=== PATIENT | male | born 1930 | race Caucasian/White ===

== ENCOUNTER 2018-03-10 16:37 | Inpatient (IN) | payer MEDICARE, BC ==
[2018-03-11] MEDS ORDERED: ONDANSETRON 4 MG/2 ML VIAL IVP PRN (06:14)
[2018-03-11] MEDS ORDERED: ACETAMINOPHEN TAB 325 MG TAB PO PRN (06:16)
[2018-03-11] MEDS ORDERED: IPRATROPIUM-ALBUTEROL 3 ML NEB INHALATION PRN (06:17)
[2018-03-11 07:22] VITALS: BMI 16.9
[2018-03-11] MEDS: IPRATROPIUM-ALBUTEROL 3 ML NEB INHALATION SCH ×4 (07:57→19:39)
[2018-03-11 09:15] LABS: Amorphous Sediment,Urine Few /hpf; Appearance,Urine Cloudy (Clear); Bilirubin,Urine Negative (Negative); Blood,Urine Negative (Negative); Color,Urine Yellow; Glucose,Urine (UA) Negative (Negative); Hyaline Casts,Urine 1 /lpf (0-2); Ketones,Urine Negative (Negative); Leukocyte Esterase,Urine Negative (Negative); Mucus,Urine Rare /hpf; Nitrite,Urine Negative (Negative); Protein,Urine 1+ (Negative); RBC,Urine <1 /hpf (0-5); Specific Gravity,Urine 1.023 (1.001-1.035); Squamous Epithelial Cell,Urine <1 /hpf (0-4); Urobilinogen,Urine <2.0 mg/dL (<2.0); WBC,Urine <1 /hpf (0-5)
[2018-03-11 09:48] LABS: Basophils % (A) 0 %; Eosinophils # (A) 0.1 k/uL (0-0.7); Eosinophils % (A) 1 %; HCT 26.6 % (39.0-53.0); HGB 8.7 gm/dL (13.0-17.5); Lymphocytes # (A) 0.7 k/uL (1.0-4.8); Lymphocytes % (A) 8 %; MCH 31.5 pg (25.0-35.0); MCHC 32.8 g/dL (31.0-37.0); MCV 96.2 fL (80.0-100.0); Mean Platelet Volume 8.1; Monocytes # (A) 0.6 k/uL (0-1.0); Monocytes % (A) 6 %; Neutrophils # (A) 7.3 k/uL (1.3-7.7); Neutrophils % (A) 83 %; Platelet Count 253 k/uL (150-450); RBC 2.77 m/uL (4.30-5.90); RDW 13.2 % (11.5-15.5); WBC 8.8 k/uL (3.8-10.6)
[2018-03-11 09:55] LABS: INR 4.3 (<1.2); Prothrombin Time 38.9 sec (9.0-12.0)
[2018-03-11 10:11] LABS: Albumin 2.6 g/dL (3.5-5.0); Calcium 9.5 mg/dL (8.4-10.2); Potassium 3.6 mmol/L (3.5-5.1); Total Bilirubin 0.4 mg/dL (0.2-1.3); Total Protein 5.6 g/dL (6.3-8.2)
[2018-03-11] MEDS: PIPERACILLIN-TAZOBACTAM 3.375 GM in DEXTROSE/WATER 1 50ML.BAG IVPB SCH ×3 (11:00→23:29)
[2018-03-11] MEDS: PANTOPRAZOLE 40 MG TABLET PO SCH (11:01)
[2018-03-11] MEDS: SYMBICORT 80-4.5 MCG INHALER INHALATION SCH ×2 (12:54→19:39)
--- NOTE | 2018-03-11 13:25 | XR ---
EXAMINATION TYPE: XR chest 2V DATE OF EXAM: 03/11/2018 COMPARISON: 07/31/2015 INDICATION: Pneumonia TECHNIQUE: Frontal and lateral views of the chest are obtained. FINDINGS: The heart size is normal. Postsurgical changes are present. The pulmonary vasculature is normal. There is a consolidation at the right lower lobe silhouetting the right diaphragm. Mild additional in creased lung markings are present. Some changes suggestive for COPD are present. There is an increase d AP diameter and lateral view. IMPRESSION: 1. Right lower lobe consolidation. Correlate for pneumonia. 2. Mild diffuse increased lung markings. Consider congestive heart failure superimposed on COPD. 3. COPD
[2018-03-11] MEDS: CYANOCOBALAMIN 500 MCG TAB PO SCH (16:12)
[2018-03-11] MEDS: guaiFENesin 600 MG TABLET.ER PO SCH ×2 (16:12→21:04)
[2018-03-11] MEDS: SODIUM CHLORIDE 0.9% 1,000 ML IV SCH (16:14)
[2018-03-11] MEDS ORDERED: WARFARIN 7.5 MG TAB PO SCH (18:00)
--- NOTE | 2018-03-11 19:09 | HP ---
HISTORY AND PHYSICAL DATE OF ADMISSION: 03/11/18. PRESENTING COMPLAINT: Weak tired, short of breath. HISTORY OF PRESENTING COMPLAINT: This is a pleasant 87-year-old patient whose family doctor is Dr. Recinos out of [place]. 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 The patient was there at [facility] from where he was transferred down here as he wanted to be close to his children in [place], [place]. The patient up to about week ago had been using a walker, was able to slowly get to his bathroom. Over the course of a few weeks the patient has been losing appetite, losing weight, lost about 30 pounds, becoming more and more fragile. The patient is known to have dysphagia and has had recurrent aspiration pneumonia. The patient does not want a feeding tube. The patient has been normally at home oxygen on 2 L. On this admission he again had aspiration pneumonia. The patient's is at the bedside and patient's other family members including son and [id number] are present. The patient has got a cough, not eating much, having bowel movements, became more and more weak and tired. The patient is on Coumadin for a mechanical aortic valve. Also got prostate cancer which is getting hormone injections every 6 months that had been discontinued. The patient is known to have interstitial lung disease. REVIEW OF SYSTEMS: CONSTITUTIONAL: Weak, tired, loss of appetite, has lost about 30 pounds. HEENT: Decreased hearing, poor vision in the eyes. RESPIRATORY: As above. CARDIOVASCULAR: None. GASTROINTESTINAL: None. GENITOURINARY: None. MUSCULOSKELETAL: Some pain in different joints. DERMATOLOGICAL: None. HEMATOLOGICAL: None. LYMPHATICS: None. PSYCHIATRY: None. NEUROLOGICAL: Generalized weakness. PAST MEDICAL HISTORY: COPD, aspiration pneumonia, chronic hypoxic respiratory failure on 2 L oxygen at home. Mechanical aortic valve, hypertension, diverticulosis, prostate cancer, not on any further treatment, GERD, diverticulosis, abdominal aortic aneurysm 5.2 cm, chronic dysphagia with aspiration, interstitial, pulmonary fibrosis, blind in the left eye, diminished hearing with hearing aids. PAST SURGICAL HISTORY: Coronary artery bypass, aortic valve replacement. SOCIAL HISTORY: . The patient smoked for about 40 years, stopped in 1980. 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 FAMILY HISTORY: Reviewed, noncontributory to presentation. HOME MEDICATIONS: Mucinex 600 mg b.i.d., Coumadin 7.5 p.o. daily, Spiriva 1 capsule inhalation daily, Restoril 50 mg q.h.s., Senokot S 1 tablet p.o. b.i.d. p.r.n., Atrovent nebulizer q.4 p.r.n., Flexeril 10 mg q.h.s. vitamin B12 1000 mcg p.o. daily, vitamin D3 400 units p.o. daily, calcium 600 mg p.o. daily, Symbicort 80/4.5, 2 puffs b.i.d., Ventolin 2.5 q.4h p.r.n. ALLERGIES: SOLU-MEDROL, OXYCODONE. PHYSICAL EXAMINATION: VITAL SIGNS ON PRESENTATION: Temperature 98.1, pulse 97, respiratory 18, blood pressure 108/60, pulse ox 91% on 4 L. GENERAL APPEARANCE: Very thin built, BMI 16.9, lying in bed. EYES: Pupils equal, conjunctivae dirty. HEENT: External appearance of nose and ears normal. Decreased hearing. Oral cavity, tongue is dry, parched, dried deposits at the back of the throat, not necessarily white. NECK: JVD not raised. Mass not palpable. RESPIRATORY: Effort increased. Lungs, diminished breath sounds. CARDIOVASCULAR: First and second sounds normal. No edema. ABDOMEN: Scaphoid, soft. Liver and spleen not palpable. No tenderness. LYMPHATIC: No lymph node palpable in neck or axillae. PSYCHIATRY: Alert and orient x3. Mood and affect normal. NEUROLOGICAL: Decreased eyesight, decreased vision. No facial asymmetry. Generalized weakness in the muscles. 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 General diffuse wasting of the muscles. INVESTIGATIONS: White count 8.8, hemoglobin 8.7, INR 4.3, potassium 3.6, BUN 22, creatinine 0.96, albumin 2.6. Chest x-ray shows right basilar infiltrate. The patient's CT scan from outside hospital shows evidence of pulmonary fibrosis. ASSESSMENT: 1. Right lower lobe pneumonia, aspiration which patient had been on Zosyn but now patient is afebrile with normal white count and some of the changes in that may be chronic. 2. Chronic hypoxic respiratory failure in an ex-smoker. 3. Chronic dysphagia with recurrent aspiration. This has already been worked up in the past. 4. Mechanical aortic valve chronically on Coumadin. 5. Coumadin monitoring. 6. Colonic diverticulosis. 7. Prostate cancer, not for any further treatment per patient. 8. Gastroesophageal reflux disease. 9. Abdominal aortic aneurysm 5.2 cm. 10.Interstitial lung disease/pulmonary fibrosis. 11.Anemia of chronic disease, probably element of nutritional. 12.Medical debility multifactorial. 13.Severe protein-calorie malnutrition with poor oral intake, bony prominences, muscle wasting. BMI 16.9. 14.CODE STATUS: DNR. PLAN: Patient will be continued for another 24 hours of IV Zosyn and then switch to Augmentin. Home medications are resumed. Coumadin dose will be cut back. We will start the patient on Ensure. Speech therapy was consulted to educate the patient on his feeding and the . PT, OT will be consulted. The patient's personal wishes to go home, which will be respected. There is some family disagreement what they want but I did discuss with the family at length that we will respect the patient's wishes and they can decide with him what the best is for him keeping his views in mind. Also discussed with the perinatal social worker. MMODL / IJN: [id number] /
[2018-03-11] MEDS: traMADol 50 MG TAB PO PRN (20:11)
[2018-03-11] MEDS: TEMAZEPAM 15 MG CAP PO PRN (20:12)
[2018-03-11] MEDS: CYCLOBENZAPRINE 10 MG TAB PO SCH (21:04)
[2018-03-12 07:30] LABS: Basophils % (A) 0 %; Eosinophils # (A) 0.2 k/uL (0-0.7); Eosinophils % (A) 3 %; HCT 27.7 % (39.0-53.0); Lymphocytes # (A) 1.1 k/uL (1.0-4.8); Lymphocytes % (A) 14 %; MCHC 32.5 g/dL (31.0-37.0); MCV 95.3 fL (80.0-100.0); Mean Platelet Volume 7.2; Monocytes # (A) 0.6 k/uL (0-1.0); Monocytes % (A) 8 %; Neutrophils # (A) 5.5 k/uL (1.3-7.7); Neutrophils % (A) 73 %; Platelet Count 343 k/uL (150-450); RBC 2.91 m/uL (4.30-5.90); RDW 12.9 % (11.5-15.5); WBC 7.5 k/uL (3.8-10.6)
[2018-03-12 07:36] LABS: INR 4.9 (<1.2); Prothrombin Time 44.7 sec (9.0-12.0)
[2018-03-12] MEDS: IPRATROPIUM-ALBUTEROL 3 ML NEB INHALATION SCH ×4 (07:46→20:08)
[2018-03-12] MEDS: PIPERACILLIN-TAZOBACTAM 3.375 GM in DEXTROSE/WATER 1 50ML.BAG IVPB SCH ×2 (07:46→16:00)
[2018-03-12] MEDS: SYMBICORT 80-4.5 MCG INHALER INHALATION SCH ×2 (07:46→20:07)
[2018-03-12 07:54] LABS: ALT 31 U/L (21-72); AST 40 U/L (17-59); Albumin 2.4 g/dL (3.5-5.0); Alkaline Phosphatase 81 U/L (38-126); Anion Gap 8 mmol/L; Blood Urea Nitrogen 16 mg/dL (9-20); Carbon Dioxide 28 mmol/L (22-30); Chloride 101 mmol/L (98-107); Glucose 95 mg/dL (74-99); Potassium 3.7 mmol/L (3.5-5.1); Sodium 137 mmol/L (137-145); Total Bilirubin 0.3 mg/dL (0.2-1.3); Total Protein 5.5 g/dL (6.3-8.2)
[2018-03-12] MEDS: guaiFENesin 600 MG TABLET.ER PO SCH ×2 (08:54→21:24)
[2018-03-12] MEDS: PANTOPRAZOLE 40 MG TABLET PO SCH (08:54)
[2018-03-12] MEDS: traMADol 50 MG TAB PO PRN (12:18)
[2018-03-12] MEDS: CYANOCOBALAMIN 500 MCG TAB PO SCH (12:18)
[2018-03-12] MEDS: SODIUM CHLORIDE 0.9% 1,000 ML IV SCH ×2 (20:13→23:21)
[2018-03-12] MEDS: SENNOSIDES-DOCUSATE SODIUM 1 EACH TAB PO PRN (21:24)
[2018-03-12] MEDS: TEMAZEPAM 15 MG CAP PO PRN (21:24)
[2018-03-12] MEDS: CYCLOBENZAPRINE 10 MG TAB PO SCH (21:24)
--- NOTE | 2018-03-12 22:25 | PN ---
PROGRESS NOTE DATE OF SERVICE: 03/12/2018 PRESENTING COMPLAINT: Tired. INTERVAL HISTORY: The patient was transferred here from [place], treated for pneumonia, which is getting better. Did eat better today and actually to did walk around the bed apparently with Physical Therapy. The patient's and other family members are present. REVIEW OF SYSTEMS: Done for constitutional, cardiovascular, GI, pulmonary; relevant findings as above. CURRENT MEDICATIONS: Reviewed that include IV Zosyn. PHYSICAL EXAMINATION: Afebrile, pulse 80, respirations 18, blood pressure 115/57, pulse ox 91% on room air. GENERAL APPEARANCE: Sitting up in a chair, more awake. EYES: Pupils equal. Conjunctivae normal. HEENT: External nose and ears normal. Oral cavity normal. Decreased hearing. NECK: JVD not raised. Mass not palpable. RESPIRATORY: Effort increased. LUNGS: Decreased breath sounds. CARDIOVASCULAR: First and second sounds normal. No edema. ABDOMEN: Soft, nontender. Liver and spleen not palpable. PSYCHIATRY: Alert and oriented x3. Mood and affect normal. INVESTIGATIONS: White count 7.5, INR 4.9. Potassium 3.7, BUN and creatinine are normal. Albumin 2.4. ASSESSMENT: 1. Right lower lobe pneumonia, aspiration with clinical improvement. 2. Chronic hypoxic respiratory failure in an ex-smoker. 3. Chronic dysphagia with recurrent aspiration. The patient has been worked up in the past. 4. Mechanical aortic valve, chronically on Coumadin. 5. Coumadin monitoring. 6. Chronic diverticulosis. 7. Prostate cancer, not for any further treatment. 8. Gastroesophageal reflux disease. 9. Abdominal aortic aneurysm, 5.2 cm. 10.Interstitial lung disease with pulmonary fibrosis. 11.Anemia of chronic disease, probably nutritional. 12.Medical debility multifactorial. 13.Severe protein-calorie malnutrition with poor oral intake. 14.CODE STATUS: DO NOT RESUSCITATE. PLAN: I did talk to the patient and family, looking at going home. We will try to coordinate that for tomorrow. I did speak to the social human services assistants. I did speak to the patient and . Overall prognosis guarded. Will hold off Coumadin yet again today because of INR being up. MMODL / IJN: [id number] /
[2018-03-13] MEDS: PIPERACILLIN-TAZOBACTAM 3.375 GM in DEXTROSE/WATER 1 50ML.BAG IVPB SCH ×2 (00:22→08:57)
[2018-03-13 08:02] VITALS: BP 130/73; RESP 16; TEMP 97.2
[2018-03-13] MEDS: SYMBICORT 80-4.5 MCG INHALER INHALATION SCH (08:20)
[2018-03-13] MEDS: IPRATROPIUM-ALBUTEROL 3 ML NEB INHALATION SCH ×3 (08:20→15:44)
[2018-03-13 08:54] LABS: INR 3.4 (<1.2); Prothrombin Time 30.5 sec (9.0-12.0)
[2018-03-13] MEDS: PANTOPRAZOLE 40 MG TABLET PO SCH (08:57)
[2018-03-13] MEDS: guaiFENesin 600 MG TABLET.ER PO SCH (08:58)
[2018-03-13] MEDS: CYANOCOBALAMIN 500 MCG TAB PO SCH (08:58)
[2018-03-13] MEDS: SENNOSIDES-DOCUSATE SODIUM 1 EACH TAB PO PRN (09:06)
[2018-03-13] MEDS: traMADol 50 MG TAB PO PRN ×2 (09:06→16:24)
[2018-03-13 15:54] VITALS: PULSE 88
[2018-03-13] MEDS ORDERED: WARFARIN 5 MG TAB PO SCH (18:00)
--- NOTE | 2018-03-13 20:59 | DS ---
DISCHARGE SUMMARY DATE OF ADMISSION: 03/11/2018. DATE OF DISCHARGE: 03/14/2018 FINAL DIAGNOSES: 1. Right lower lobe pneumonia, probably aspiration. 2. Chronic hypoxic respiratory failure from possibly underlying chronic obstructive pulmonary disease in an ex-smoker. 3. Chronic obstructive pulmonary disease in an ex-smoker. 4. Chronic dysphagia with recurrent aspiration. Patient has been worked up in the past. 5. Mechanical aortic valve, chronically on Coumadin. 6. Coumadin monitoring. 7. Chronic diverticulosis. 8. Prostate cancer, not for any further treatment. 9. Gastroesophageal reflux disease. 10.Abdominal aortic aneurysm, 5.2 cm. 11.Interstitial lung disease with pulmonary fibrosis. 12.Anemia of chronic disease, probably multifactorial. 13.Medical debility, multifactorial. 14.Severe protein-calorie malnutrition with poor oral intake. 15.CODE STATUS: DO NOT RESUSCITATE. HOSPITAL COURSE: This patient transferred here from [place], where he was admitted for 2 days to [facility], from where his family transferred him up here. Patient's overall prognosis is guarded. The patient is able to tolerate some diet, able to walk with some support. Did meet with the family earlier. The patient will be going home. If patient deteriorates down the road, patient would probably then be appropriate for hospice. On examination, lungs reveal decreased breath sounds. CARDIOVASCULAR: First and second sounds normal. INR was 3.4. Albumin is 2.4. Hemoglobin is 9. DISCHARGE MEDICATIONS: 1. Flexeril 10 mg at bedtime. 2. Restoril 15 mg at bedtime. 3. Vitamin D3 400 units p.o. daily. 4. Vitamin B12 1000 mcg p.o. daily. 5. Senokot S one tablet p.o. b.i.d. p.r.n. 6. DuoNeb t.i.d. 7. Coumadin 2.5 mg daily. FOLLOWUP: Follow up with Dr. Recinos on 03/17/2018. Labs CBC, BMP, INR in 3 days. Care was discussed with the business case analyst, , family. Questions were answered. [facility] visiting nurses to follow. Discharge planning more than 35 minutes. MMODL / IJN: [id number] /
== END 2018-03-13 17:10 | disposition home or self-care (01) | DRG 177 ==
LOC: 5MS5E 03-11 04:09
PROVIDERS: ADMIT Hospitalist; ATTEND Hospitalist
DX: J69.0 Pneumonitis due to inhalation of food and vomit (principal); E43 Unspecified severe protein-calorie malnutrition; J96.11 Chronic respiratory failure with hypoxia; Z68.1 Body mass index [BMI] 19.9 or less, adult; D63.8 Anemia in other chronic diseases classified elsewhere; H54.62 Unqualified visual loss, left eye, normal vision right eye; H91.90 Unspecified hearing loss, unspecified ear; Z97.4 Presence of external hearing-aid; I10 Essential (primary) hypertension; I71.4 Abdominal aortic aneurysm, without rupture; J44.9 Chronic obstructive pulmonary disease, unspecified; K21.9 Gastro-esophageal reflux disease without esophagitis; K57.30 Diverticulosis of large intestine without perforation or abscess without bleeding; R13.10 Dysphagia, unspecified; Z66 Do not resuscitate; Z79.01 Long term (current) use of anticoagulants; Z79.51 Long term (current) use of inhaled steroids; Z79.899 Other long term (current) drug therapy; Z85.46 Personal history of malignant neoplasm of prostate; Z87.891 Personal history of nicotine dependence; Z95.1 Presence of aortocoronary bypass graft; Z95.2 Presence of prosthetic heart valve; Z99.81 Dependence on supplemental oxygen; M19.042 Primary osteoarthritis, left hand; M19.041 Primary osteoarthritis, right hand; M17.0 Bilateral primary osteoarthritis of knee; Z88.5 Allergy status to narcotic agent; Z88.8 Allergy status to other drugs, medicaments and biological substances
CPT/HCPCS: 71046; 80053; 81001; 85025; 85610; 87086; 94640